=== PATIENT | male | born 1995 | race Asian ===

== ENCOUNTER 2019-06-18 14:20 | Emergency (ER) | payer OTHER | END 2019-06-18 15:31 | disposition home or self-care (01) | LOC: ED 14:20 | DX: M79.671 Pain in right foot (principal) | CPT/HCPCS: 99281 ==

== ENCOUNTER 2019-06-22 16:01 | Emergency (ER) | payer OTHER ==
[~2019-06-22] VITALS: Ht 170.2 cm; Wt 86.2 kg
[2019-06-22 17:03] VITALS: BP 147/82; TEMP 97
== END 2019-06-22 17:05 | disposition home or self-care (01) ==
LOC: ED 16:01
DX: S90.31XA Contusion of right foot, initial encounter (principal); W22.8XXA Striking against or struck by other objects, initial encounter
CPT/HCPCS: 99282; 99283